=== PATIENT | male | born 1975 | race African-American/Black ===

== ENCOUNTER 2018-06-09 15:19 | Emergency (ER) | payer BC, SELFPAY ==
[2018-06-09] MEDS ORDERED: Lidocaine 1% w/Epinephrine 1:100K 20 ML VIAL ONE (15:41)
[2018-06-09] MEDS ORDERED: Adacel (T-DAP) 0.5 ML VIAL ONE (16:05)
== END 2018-06-09 16:32 | disposition home or self-care (01) ==
LOC: ERS 15:19
DX: L02.415 Cutaneous abscess of right lower limb (principal); L03.115 Cellulitis of right lower limb
CPT/HCPCS: 10060; 87070; 87077; 87205; 90471; 90715; J2001

== ENCOUNTER 2021-09-13 10:40 | Emergency (ER) | payer SELFPAY | END 2021-09-13 12:31 | disposition home or self-care (01) | LOC: ERS 10:40 | DX: L02.214 Cutaneous abscess of groin (principal) | CPT/HCPCS: 10060 ==

== ENCOUNTER 2022-05-14 16:20 | Emergency (ER) | payer SELFPAY | END 2022-05-14 17:22 | disposition home or self-care (01) | LOC: ERS 16:20 | DX: U07.1 COVID-19 (principal) | CPT/HCPCS: 99283; U0003; U0005 ==